=== PATIENT | female | born 1990 | race African-American/Black ===

== ENCOUNTER 2022-01-08 20:03 | Emergency (ER) | payer MEDICAID ==
[~2022-01-08] VITALS: Ht 170.2 cm; Wt 82.0 kg
[2022-01-08] MEDS ORDERED: SODIUM CHLORIDE 0.9% 1,000 ML IV ONE (21:00)
[2022-01-08] MEDS ORDERED: KETOROLAC 30MG/ML VIAL IV ONE (21:00)
[2022-01-08] MEDS ORDERED: ONDANSETRON HCL 4MG/2ML INJ IV ONE (21:00)
[2022-01-08] MEDS ORDERED: MORPHINE SULFATE 4 MG/ML CPJ (NOT FOR IM USE) IV ONE (21:00)
[2022-01-08 21:14] LABS: BASOPHILS % 0.4 % (0.0-2.0); EOSINOPHILS % 2.5 % (0.0-5.0); HEMATOCRIT. 34.7 % (36.0-48.0); HEMOGLOBIN. 11.6 g/dL (12.0-16.0); LYMPHOCYTES % 12.7 % (20.0-50.0); MEAN CORPUSCULAR HEMOGLOBIN 28.9 pg (28.0-32.0); MEAN CORPUSCULAR VOLUME 86.8 fL (81.0-99.0); MEAN PLATELET VOLUME 7.7 fl (7.4-10.4); MONOCYTES % 4.4 % (2.0-8.0); PLATELET 298 x1000/uL (130-400); RED CELL DISTRIBUTION WIDTH 15.7 % (11.6-14.6)
[2022-01-08 21:25] LABS: CHLORIDE 107 mEq/L (98-107)
[2022-01-08 21:28] VITALS: BP 148/78
[2022-01-08 21:32] LABS: B-HCG QUANTITATIVE 292 mIU/mL (<3)
[2022-01-08] MEDS ORDERED: POTASSIUM CHLORIDE 20MEQ TABLET SR PO ONE (22:00)
[2022-01-08] MEDS ORDERED: HYDR-4001 MT (22:52)
== END 2022-01-08 23:47 | disposition home or self-care (01) ==
LOC: ER 20:03
DX: R10.30 Lower abdominal pain, unspecified (principal); R11.2 Nausea with vomiting, unspecified; R19.7 Diarrhea, unspecified; N93.8 Other specified abnormal uterine and vaginal bleeding
CPT/HCPCS: 36415; 76830; 76856; 80053; 84702; 85025; 86850; 86900; 86901; 93005; 96361; 96374; 96375; 99285; J1885; J2270; J2405; J7030